=== PATIENT | male | born 1985 | race African-American/Black ===

== ENCOUNTER 2019-10-16 04:19 | Emergency (ER) | payer OTHER ==
[~2019-10-16] VITALS: Ht 177.8 cm; Wt 106.6 kg
[~2019-10-16 04:19] MED LIST: BACTRIM DS TAB1 EACH PO; CALAZIME TOP; CLEOCIN HCL150 MG PO; DEPAKOTE ER500 M1 PO; DEPAKOTE250 MG PO; EUCERIN CREME57 GM TOP; FEXOFENADINE HCL PO; IPRAT-ALBUT 0.5-3 ML INH; KEFLEX500 MG PO; KETOCONAZOLE15 GM TOP; KLOR-CON 10 ER10 MEQ PO; KRISTALOSE20 GM PO; LASIX 40 MG TAB40 MG PO; LOPRESSOR50 MG PO; LUMIGAN2.5 M1 OPHTHALMIC; MICONAZOLE NITR45 GM TOP; MIRALAX119 GM PO; MUPIROCIN1 GM TOP; MYLANTA MAXIMU355 ML PO; NOHOMEMEDICATIONS; NORCO 5-325 TA1 EACH PO; NORVASC 2.5 MG2.5 M1 PO; NYSTATIN1 EA10 TOP; OXYBUTYNIN 5 MG5 M2 PO; RANITIDINE HCL150 M1 PO; RISPERDAL0.5 MG PO; TRAMADOL 50 MG50 MG PO; TYLENOL325 M1 PO; VANACOF DM LIQ240 ML PO; ZOLOFT100 MG PO
[2019-10-16 04:31] VITALS: BP 166/105
[2019-10-16 05:09] LABS: ABSOLUTE BASOPHILS 0.1 thou/uL (0.0-0.2); ABSOLUTE EOSINOPHILS 0.1 thou/uL (0.0-0.7); ABSOLUTE LYMPHOCYTES 2.4 thou/uL (0.8-5.3); ABSOLUTE MONOCYTES 0.6 thou/uL (0.0-1.2); ABSOLUTE NEUTROPHILS 5.3 thou/uL (1.6-8.1); BASOPHILS 1.1 %; HEMATOCRIT 35.1 % (42.0-52.0); HEMOGLOBIN 11.8 gm/dL (14.0-18.0); LYMPHOCYTES 28.2 %; MCH 26.5 pg (26.0-34.0); MCHC 33.7 g/dL (28.0-37.0); MCV 78.7 fL (80.0-100.0); MONOCYTES 7.1 %; NUCLEATED RBCS 0 /100WBC; PLATELET COUNT* 359 thou/uL (150-400); POLYS 62.6 %; RBC 4.46 mil/uL (4.50-6.00); RDW-CV 14.9 % (10.5-14.5); WBC 8.5 thou/uL (4.0-11.0)
[2019-10-16 05:22] LABS: CALCIUM 8.9 mg/dL (8.5-10.1); CREATININE 0.8 mg/dL (0.6-1.3); POTASSIUM 3.8 mmol/L (3.5-5.1)
[2019-10-16 05:27] LABS: ALBUMIN 2.9 g/dL (3.4-5.0); TOTAL BILIRUBIN 0.2 mg/dL (<0.1-1.0); TOTAL PROTEIN 8.8 g/dL (6.4-8.2)
[2019-10-22] MEDS ORDERED: METFORMIN HCL500 MG PO (23:44)
== END 2019-10-16 05:47 | disposition left against medical advice (07) ==
LOC: M.ERS 04:19
PROVIDERS: Emergency Medicine
DX: R73.9 Hyperglycemia, unspecified (principal); F17.210 Nicotine dependence, cigarettes, uncomplicated; Z48.01 Encounter for change or removal of surgical wound dressing